=== PATIENT | male | born 1945 | race Caucasian/White ===

== ENCOUNTER 2021-08-14 07:30 | Emergency (ER) | payer MEDICARE, BC ==
[2021-08-14] MEDS ORDERED: HYDROmorphone 2 MG/ML SDV IVPUSH ONE (09:22)
[2021-08-14] MEDS ORDERED: Sodium Chloride 0.9% 50 ML SDV FLUSH ONE (09:48)
[2021-08-14] MEDS ORDERED: Sodium Chloride 0.9% 10 ML Syringe FLUSH PRN (09:49)
[2021-08-14] MEDS ORDERED: Iopamidol 612 MG/ML 100 ML Bottle IV SCH (10:00)
[2021-08-14] MEDS ORDERED: Sodium Chloride 0.9% 1,000 ML IV SCH (10:00)
[2021-08-14] MEDS ORDERED: traMADol 50 MG Tab ONE ×3 (11:51→12:00)
== END 2021-08-14 11:44 | disposition home or self-care (01) ==
LOC: LB.ED 07:30
DX: K40.20 Bilateral inguinal hernia, without obstruction or gangrene, not specified as recurrent (principal); E87.5 Hyperkalemia; I10 Essential (primary) hypertension; M19.90 Unspecified osteoarthritis, unspecified site; Z91.030 Bee allergy status; Z79.899 Other long term (current) drug therapy
CPT/HCPCS: 36415; 74177; 80048; 80053; 81001; 85025; 93005; 96374; 99284; A9270; J1170; J7030; 99283; A0425; A0429

== ENCOUNTER 2021-08-20 17:44 | Observation (INO) | payer MEDICARE, BC ==
[2021-08-20] MEDS ORDERED: Sodium Chloride 0.9% 10 ML Syringe FLUSH PRN (17:56)
[2021-08-20] MEDS ORDERED: Sodium Chloride 0.9% 500 ML IV ONE (17:56)
[2021-08-20] MEDS ORDERED: Glucagon,Human Recombinant 1 MG Vial IM PRN (18:30)
[2021-08-20] MEDS ORDERED: Insulin Regular, Human 100 Units/ML 3 ML Vial IV ONE (18:30)
[2021-08-20] MEDS ORDERED: 50% Dextrose in Water 50 ML Syringe IVPUSH PRN (18:30)
[2021-08-20] MEDS ORDERED: 50% Dextrose in Water 50 ML Syringe IVPUSH ONE (18:31)
[2021-08-20] MEDS ORDERED: Sodium Polystyrene Sulfonate 15 GM/60 ML Susp 60 ML Bot PO ONE (19:15)
[2021-08-20] MEDS ORDERED: Acetaminophen 325 MG Tab PO PRN (20:47)
[2021-08-20] MEDS: Dextrose 5%-0.45% NaCl 1,000 ML IV SCH (20:57)
[2021-08-20] MEDS ORDERED: Sodium Polystyrene Sulfonate 15 GM/60 ML Susp 60 ML Bot ONE (21:28)
[2021-08-21] MEDS: Dextrose 5%-0.45% NaCl 1,000 ML IV SCH (05:02)
[2021-08-21 07:45] VITALS: BP 132/75; PULSE 62
[2021-08-21] MEDS ORDERED: Sodium Polystyrene Sulfonate 15 GM/60 ML Susp 60 ML Bot ONE (09:18)
[2021-08-21] MEDS ORDERED: Sodium Polystyrene Sulfonate 15 GM/60 ML Susp 60 ML Bot PO ONE (09:20)
== END 2021-08-21 10:55 | disposition home or self-care (01) ==
LOC: LB.ED 17:44 → LB.MS 20:47
PROVIDERS: ADMIT Physician Assistant; ATTEND Physician Assistant
DX: E87.5 Hyperkalemia (principal); E16.0 Drug-induced hypoglycemia without coma; I10 Essential (primary) hypertension; Z79.899 Other long term (current) drug therapy
CPT/HCPCS: 36415; 80048; 82947; 93005; 93010; 96374; 96376; 99285-25; 99305; 99315; A9270-GY; G0378; J7040; J7042